=== PATIENT | male | born 1955 | race Two or more races ===

== ENCOUNTER → 2020-09-16 | Day surgery (SDC) | payer OTHER ==
[~2020-09-16] MED LIST: ATORVASTATIN CA10 MG PO; PERCOCET 5-3251 EACH PO; ZESTRIL5 MG PO
== END | disposition home or self-care (01) ==
LOC: ADM 09-11 08:00 → CIR.AMB 08:00
PROVIDERS: ATTEND Surgery
DX: N52.31 Erectile dysfunction following radical prostatectomy (principal); Z20.822 Contact with and (suspected) exposure to COVID-19
CPT/HCPCS: 54405; C1813

== ENCOUNTER 2023-06-06 11:58 | Outpatient (CLI) | payer OTHER | END 2023-06-06 12:04 | disposition home or self-care (01) | LOC: TOM 11:58 | DX: Z86.010 Personal history of colon polyps (principal) ==